=== PATIENT | female | born 1950 | race Caucasian/White ===

== ENCOUNTER → 2024-12-16 | Outpatient (CLI) | payer MEDICARE, BC, SELFPAY ==
[2024-12-16 16:03] LABS: Creatinine, Serum 0.76 mg/dL (0.70-1.20); EST Glomerular Filtration Rate 82 (>60)
== END | disposition home or self-care (01) ==
LOC: MTLAB 11:42
DX: M81.0 Age-related osteoporosis without current pathological fracture (principal); Z79.899 Other long term (current) drug therapy; Z51.81 Encounter for therapeutic drug level monitoring
CPT/HCPCS: 36415; 82310; 82565